=== PATIENT | male | born 1975 | race Caucasian/White ===

== ENCOUNTER 2018-03-27 22:46 | Inpatient (IN) | payer OTHER, SELFPAY ==
[2018-03-27] MEDS ORDERED: Lidocaine 1% PF 5 ML VIAL ONE (23:01)
[2018-03-28 02:47] LABS: #Basophils 0.1 thou/uL (0.0-0.2); #Eosinphils 0.3 thou/uL (0.0-0.7); #Lymphocytes 3.3 thou/uL (1.20-3.40); #Monocytes 1.6 thou/uL (0.11-0.59); #Neutrophils 13.5 thou/uL (1.40-6.50); %Basophils 0.5 % (0.0-1.0); %Eosinophils 1.7 % (0.0-10.0); %Lymphocytes 17.4 % (21.0-51.0); %Monocytes 8.4 % (0.0-10.0); Hemoglobin 13.5 g/dL (14.0-18.0); Mean Corpuscular HGB CONC 33.6 g/dL (32.0-36.0); Mean Corpuscular Hemoglobin 32.6 pg (27.0-31.0); Mean Corpuscular Volume 96.9 fL (78.0-98.0); Mean Platelet Volume 7.4 fL (7.4-10.4); Platelet Count 389 thou/uL (130-400); RBC Distribution Width 11.9 % (11.5-14.5); Red Blood Cell (RBC) Count 4.14 mill/uL (4.70-6.10); White Blood Cell (WBC) Count 18.7 thou/uL (4.8-10.8)
[2018-03-28 03:48] LABS: ALT (SGPT) 18 U/L (8-55); AST (SGOT) 14 U/L (5-34); Albumin 3.5 g/dL (3.5-5.0); Alkaline Phosphatase 90 U/L (40-150); Anion Gap 15 mmol/L (10-20); BUN (Urea Nitrogen) 8 mg/dL (8.9-20.6); Bilirubin, Total 0.7 mg/dL (0.2-1.2); Calc. Creatinine Clearance 0 mL/min (70-130); Calcium 8.9 mg/dL (7.8-10.44); Carbon Dioxide 18 mmol/L (22-29); Chloride 101 mmol/L (98-107); Estimated GFR-MDRD Greater than 90; Globulin 3.3 g/dL (2.4-3.5); Glucose 272 mg/dL (70-105); Potassium 3.8 mmol/L (3.5-5.1); Protein, Total 6.8 g/dL (6.0-8.3); Sodium 130 mmol/L (136-145)
--- NOTE | 2018-03-28 04:36 | PDOC.FPRHP ---
- History of Present Illness Chief Complaint: R groin infection/abscess History of Present Illness: 42 yo M with PMH DM2, HTN, HLD was transferred from [place] ED for R groin cellulitis. Patient reports 3 day history of worsening redness, swelling, pain. Has history of "cysts" in groin area where tight fitting clothes are. He typically pops these himself. He tried popping current lesion multiple times, but it continued to worsen. Reports subjective fever/chills. I&D of abscess performed in ED with reported 25cc pus expressed. PCP is in [place]. 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 ED Course: vanc, shyamn, 1L - Allergies/Adverse Reactions Allergies Allergy/AdvReac Type Severity Reaction Status Date / Time No Known Allergies Allergy Unverified 03/28/18 06:09 - Home Medications Medication Instructions Recorded Confirmed Type Fenofibrate Nanocrystallized 48 mg PO DAILY 03/28/18 03/28/18 History [Fenofibrate] Lisinopril [Zestril] 5 mg PO DAILY 03/28/18 03/28/18 History metFORMIN HCl [Metformin HCl] 1,000 mg PO BID 03/28/18 03/28/18 History - History PMHx: DM2, HTN, HLD PSHx: None FHx: grandmother-leukemia Social: Smokes 1PPD x23 years. Meth and marijuana abuse. No alcohol use. - Review of Systems General: reports: fever/chills ENT: denies: nasal congestion Respiratory: denies: cough, congestion, shortness of breath Cardiovascular: denies: chest pain, palpitation Gastrointestinal: denies: nausea, vomiting, diarrhea, abdominal pain Genitourinary: denies: dysuria Skin: reports: rashes, lesions (R groin) Musculoskeletal: reports: pain, swelling Neurological: denies: numbness, weakness - Vital signs BP: 140/75 HR: 100 RR: 19 Tmax: 98.4 Pox: 92% on RA Wt: 127 kg - Physical Exam Constitutional: awake, alert and oriented (obese, slightly agitated, fidgeting) HEENT: normocephalic and atraumatic, grossly normal vision, grossly normal hearing, MMM Heart: RRR, normal S1/S2, no murmurs/rubs/gallops, no edema Lungs: CTAB, no respiratory distress, no wheezing Abdomen: soft (obese), non-tender, bowel sounds present Musculoskeletal: normal structure, normal tone Neurological: no focal deficit Skin: good turgor, other (large erythematous area of R groin, areas of skin sloughing, tenderness limits exam. Does not extend into scrotum.) Psychiatric: intact recent and remote memory FMR H&P: Results - Labs Result Diagrams: 03/28/18 02:25 03/28/18 02:56 Lab results: WBC 18.7 thou/uL (4.8-10.8) H 03/28/18 02:25 Hgb 13.5 g/dL (14.0-18.0) L 03/28/18 02:25 Hct 40.1 % (42.0-52.0) L 03/28/18 02:25 MCV 96.9 fL (78.0-98.0) 03/28/18 02:25 Plt Count 389 thou/uL (130-400) 03/28/18 02:25 Neutrophils % 72.0 % (42.0-75.0) 03/28/18 02:25 Sodium 130 mmol/L (136-145) L 03/28/18 02:56 Potassium 3.8 mmol/L (3.5-5.1) 03/28/18 02:56 Chloride 101 mmol/L (98-107) 03/28/18 02:56 Carbon Dioxide 18 mmol/L (22-29) L 03/28/18 02:56 BUN 8 mg/dL (8.9-20.6) L 03/28/18 02:56 Creatinine 0.78 mg/dL (0.7-1.3) 03/28/18 02:56 Glucose 272 mg/dL (70-105) H 03/28/18 02:56 Lactic Acid 0.8 mmol/L (0.5-2.2) 03/28/18 00:41 Calcium 8.9 mg/dL (7.8-10.44) 03/28/18 02:56 Total Bilirubin 0.7 mg/dL (0.2-1.2) 03/28/18 02:56 AST 14 U/L (5-34) 03/28/18 02:56 ALT 18 U/L (8-55) 03/28/18 02:56 Alkaline Phosphatase 90 U/L (40-150) 03/28/18 02:56 Serum Total Protein 6.8 g/dL (6.0-8.3) 03/28/18 02:56 Albumin 3.5 g/dL (3.5-5.0) 03/28/18 02:56 FMR H&P: A/P - Problem List (1) Sepsis Current Visit: Yes Status: Acute Code(s): A41.9 - SEPSIS, UNSPECIFIED ORGANISM (2) Cellulitis Current Visit: Yes Status: Acute Code(s): L03.90 - CELLULITIS, UNSPECIFIED (3) HTN (hypertension) Current Visit: Yes Status: Acute Code(s): I10 - ESSENTIAL (PRIMARY) HYPERTENSION (4) HLD (hyperlipidemia) Current Visit: Yes Status: Acute Code(s): E78.5 - HYPERLIPIDEMIA, UNSPECIFIED (5) T2DM (type 2 diabetes mellitus) Current Visit: Yes Status: Acute - Plan Sepsis 2/2 R groin cellulitis - WBC 22 and tachycardia on initial presentation, afebrile. Now VSS. - s/p I&D in ED, reported 25cc pus removed. No packing in place - vanc, zosyn started in ED (03/28), continue - IVF LR @ 125 - CT did not show any air in tissue DM - A1c pending - continue home metformin - accuchecks and SSI for now HTN - hold home lisinopril for now HLD - continue home fenofibrate Diet: CC Ppx: Lovenox Dispo: admit to medical inpatient FMR H&P: Upper Level - Pertinent history 42 yr old male with PMH of Diabetes, HTN, and HLD who presents with 3 days of right groin abscess formation. He reports pain and tenderness and redness. States he gets these abscesses frequently along areas of tight fitting clothing but usually pops them and they improve. Never hospitalized for this. Reports sweating and chills, subjective fever. Denies any other symptoms- no CP, SOB, N/V/D, abdominal pain. - Pertinent findings Gne: No acute distress although patient seems a little anxious, irritated, and is sweating Heart: mild tachycardia and reg rhythm, no M/R/G Lungs: CTAB, no wheezes, rhales, rhonchi EXT: right groin with some ulcerated appearance and large area of erythema, tenderness, warmth, and s/p I&d with purulent drainage. - Plan Date/Time: 03/28/18 1581 I, [Rafaela Mirza], have evaluated this patient and agree with findings/plan as outlined by geotechnical intern resident. Pertinent changes/additions are listed here. 42 yr old male with hx of drug abuse who presents with right groin cellulitis sepsis 2/2 Right groin cellulitis -mild tachycardia, leukocytosis, no documented fever seen -started on vanc and zosyn in ER -LRINEC score low risk but is pending CRP result -preliminary CT report without evidence for gas within tissue or soft tissue emphysema DM type 2 -cont home metformin -SSI HTN -cont home meds HLD -cont home meds PCP: JEIMY MAXWELL Code status: full Diet: CC Dispo: likely 3-4 days of IV abx at minimum Addendum - Attending - Attending Attestation Date/Time: 03/28/18 [id number] I personally evaluated the patient and discussed the management with Dr. Bishop I agree with the History, Examination, Assessment and Plan documented above with any addition or exceptions noted below. 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 additional PMHX :Smoker,Hx polysubstance use ,DM2 ,Obesity, HTN,and Dyslipidemia .Chart review note that 25 ml purulent d/c aspirated from right groin by ER physician here at [facility] area erythematous brawny and indurated was initial concern concern for necrotizing fasciitis and CT was obtained. Cultures obtained empirical antibiotic started will consult with General surgery. 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
[2018-03-28] MEDS ORDERED: Dextrose 50% Abboject 50 ML SYRINGE SLOW IVP PRN (06:06)
[2018-03-28] MEDS ORDERED: Dextrose 5% in Water 1,000 ML IV PRN (06:06)
[2018-03-28] MEDS ORDERED: Ondansetron ODT 4 MG TAB PO PRN (06:06)
[2018-03-28 06:16] VITALS: BMI 46.5
[2018-03-28 06:27] LABS: Hemoglobin A1c 10.9 % (4.0-6.0)
[2018-03-28] MEDS ORDERED: ISOVUE-370 76%-LOCM 1 ML ONE (07:46)
[2018-03-28] MEDS ORDERED: metFORMIN 500 MG TAB PO SCH (08:00)
[2018-03-28] MEDS: Piperacillin/Tazobactam 3.375 GM in Sodium Chloride 0.9% 100 ML IVPB SCH ×3 (08:11→18:36)
[2018-03-28] MEDS: Lactated Ringer's 1,000 ML IV SCH ×3 (08:13→22:21)
[2018-03-28] MEDS: Nicotine 21 MG PATCH TD SCH (08:15)
--- NOTE | 2018-03-28 08:32 | CT ---
PRELIMINARY REPORT/[facility]/EMERGENTY AFTER-HOURS PROCEDURE CT Right Lower Extremity With IV Contrast, Femur EXAM DATE/TIME: 03/28/2018 12:16 AM CLINICAL HISTORY: 42 years old, male; Pain and signs and symptoms; Cellulitis; Thigh; Right; Patient HX: M42 presents t o the ed via ems as a txfr from another hospital for r leg cellulitis onset x3 days travel pta. PT. Reports tactile fever TECHNIQUE: CT of the Right lower extremity with intravenous contrast was performed. Exam focused on the femur. Coronal and sagittal reformatted images were created and reviewed. COMPARISON: No relevant prior studies available. FINDINGS: Bones/joints: Normal. No acute fracture or dislocation. Soft tissues: There is subcutaneous fat stranding consistent with cellulitis involving the medial rig ht thigh and extending to the anterior right hip region. There is a focal loculated fluid collection in the subcutaneous fat layer of the anteromedial aspect of the upper right thigh which measures 5.4 x 3.4 x 4.3 cm. This collection contains no air but developing subcutaneous abscess cannot be excluded. No o bvious inflammation extending into the underlying muscles of the right thigh and no soft tissue emphysema to suggest necrotizing fasciitis. Lymph nodes: There are mildly prominent right inguinal and anterior upper right thigh lymph nodes. IMPRESSION: 1. There is subcutaneous fat stranding consistent with cellulitis involving the medial right thigh an d extending to the anterior right hip region. There is a focal loculated fluid collection in the subc utaneous fat layer of the anteromedial aspect of the upper right thigh which measures 5.4 x 3.4 x 4.3 cm. This collection contains no air but developing subcutaneous abscess cannot be excluded. No ob vious inflammation extending into the underlying muscles of the right thigh and no soft tissue emphys marisa to suggest necrotizing fasciitis. 2. There are mildly prominent right inguinal and anterior upper right thigh lymph nodes. 3. No erosive/destructive changes of the bones to suggest advanced osteomyelitis. Thank you for allowing us to participate in the care of your patient. Dictated and Authenticated by: Adarsh Sepulveda MD 03/28/2018 1:24 AM Central Time ([place] & [place]) FINAL REPORT CT RIGHT LOWER EXTREMITY WITH IV CONTRAST: Date: 03/28/18 IMPRESSION: I agree with the preliminary report given by Namita. POS: [facility]
[2018-03-28] MEDS: Enoxaparin Sodium 40 MG/0.4 ML SYRINGE SC SCH (08:37)
[2018-03-28] MEDS ORDERED: Non-Formulary Item 1 EACH (Metformin Hcl [Metformin Hcl] 1,000 MG) PO SCH (09:00)
[2018-03-28] MEDS ORDERED: Insulin Glargine 5 UNITS in Pre-Filled Syringe 1 EACH SC SCH (10:00)
[2018-03-28] MEDS: Fenofibrate 48 MG TAB PO SCH (10:57)
[2018-03-28] MEDS: Insulin Regular 300 UNITS/3 ML VIAL SC PRN (11:01)
[2018-03-28] MEDS ORDERED: Ondansetron PF 4 MG/2 ML Vial ONE (13:25)
[2018-03-28] MEDS ORDERED: Lidocaine 1% PF 5 ML VIAL ONE (13:25)
[2018-03-28] MEDS ORDERED: PROPOFOL 200 MG/20 ML VIAL ONE (13:25)
[2018-03-28 15:36] LABS: Amphetamine Detected (NotDetected); Barbiturates Screen Not Detected (NotDetected); Benzodiazepine Screen Not Detected (NotDetected); Cocaine Metabolite Screen Not Detected (NotDetected); Medtox Control Line Valid? VALID (VALID); Medtox Reader # READER 1; Methadone Not Detected (NotDetected); Methamphetamine Detected (NotDetected); Opiate Screen Not Detected (NotDetected); Oxycodone Screen Not Detected (NotDetected); Phencyclidine (PCP) Not Detected (NotDetected); THC/Cannabinoid Screen Detected (NotDetected); Tricyclic Screen Not Detected (NotDetected)
[2018-03-28] MEDS ORDERED: Bupivacaine HCl 0.5%/Epinephrine 1:200,000/PF 30 ml Vial ONE (19:28)
[2018-03-28] MEDS ORDERED: Ondansetron HCl/PF 4 MG/2 ML Vial IVP PRN (21:07)
[2018-03-28] MEDS ORDERED: Promethazine HCl 25 MG/ML VIAL SLOW IVP PRN (21:07)
[2018-03-28] MEDS ORDERED: Promethazine HCl 25 MG/ML VIAL IM PRN (21:07)
--- NOTE | 2018-03-28 23:09 | PDOC.OP ---
Operative Note - Operative Note Operative Note: PROCEDURE: Incision and drainage of right groin abscess DATE OF PROCEDURE: 03/28/2018 SURGEON: Melyssa Jarrell M.D. PREOPERATIVE DIAGNOSES: Right groin abscess POSTOPERATIVE DIAGNOSIS: Right groin abscess HISTORY: Patient with right groin abscess which is partially draining through an attempted aspiration site. He has significant erythema and induration and the recommendation was made to drain the abscess in the operating room due to the large size of involved tissue. PROCEDURE IN DETAIL: After informed consent was obtained and appropriate antibiotics continued the patient was taken to the operating room where he was placed in supine position and general anesthesia was administered. He was placed in frog-leg position and prepped and draped in standard sterile fashion. Local anesthesia was infused to the skin and subcutaneous tissues over the most fluctuant area of the abscess. This was incised and a large amount of pus encountered. Pus was sent for Gram stain and culture. The abscess cavity was palpated and extended quite high along the groin crease area. The incision was extended and additional necrotic fat debrided and pus drained. The abscess cavity measured 14 cm in length and was about 4-1/2 cm deep. There was no evidence of a necrotizing soft tissue infection; although some nonadherent globules of fat were debrided from the wound the underlying tissue appeared inflamed but viable and had excellent blood flow. The abscess cavity was copiously irrigated and hemostasis from inflamed bleeding tissues was obtained using Bovie electrocautery. There was no expressible pus from the surrounding indurated tissue and no evidence of involvement of the deep tissues. The wound was packed with Betadine soaked Kerlix and dressed with an APD pad. Additional local anesthesia was infused for postoperative pain management and the patient was extubated and taken to recovery in good condition. Estimated blood loss is minimal. There were no complications. Specimen is pus for Gram stain and culture.
[2018-03-28 23:53] LABS: Vancomycin, Trough 15.3 ug/mL
[2018-03-29] MEDS: Piperacillin/Tazobactam 3.375 GM in Sodium Chloride 0.9% 100 ML IVPB SCH ×4 (01:03→18:35)
--- NOTE | 2018-03-29 06:22 | PDOC.FM ---
- Subjective Subjective: Tolerated surgery well yesterday, denies pain. Pt frustrated with missing days of work and fear of hospital bill. Refused labs this AM. Up walking to the bathroom this morning. - Objective MAR Reviewed: Yes Vital Signs & Weight: Vital Signs (12 hours) Temp Pulse Resp BP Pulse Ox 03/29/18 02:00 97 148/82 H 97 03/29/18 01:00 100 20 142/88 H 95 03/29/18 00:00 97.9 F 102 H 18 129/79 99 03/28/18 23:00 93 20 152/83 H 95 03/28/18 22:00 98.2 F 88 20 138/89 93 L Weight Admit Weight 130.635 kg Weight 130.635 kg I&O: 03/27/18 03/28/18 03/29/18 06:59 06:59 06:59 Intake Total 400 Balance 400 Result Diagrams: 03/28/18 02:25 03/28/18 02:56 Phys Exam - Physical Examination Constitutional: NAD HEENT: moist MMs Neck: supple Respiratory: no wheezing, clear to auscultation bilateral Cardiovascular: RRR, no significant murmur Gastrointestinal: soft, non-tender, positive bowel sounds Musculoskeletal: no edema Neurological: non-focal Psychiatric: normal affect, A&O x 3 Deviation from normal: Right groin abscess/cellulitis, wound packed Dx/Plan (1) Sepsis Code(s): A41.9 - SEPSIS, UNSPECIFIED ORGANISM Status: Acute (2) Abscess Code(s): L02.91 - CUTANEOUS ABSCESS, UNSPECIFIED Status: Acute (3) Cellulitis Code(s): L03.90 - CELLULITIS, UNSPECIFIED Status: Acute (4) HLD (hyperlipidemia) Code(s): E78.5 - HYPERLIPIDEMIA, UNSPECIFIED Status: Chronic (5) HTN (hypertension) Code(s): I10 - ESSENTIAL (PRIMARY) HYPERTENSION Status: Chronic (6) T2DM (type 2 diabetes mellitus) Status: Chronic - Plan Plan: 42yo male with pmh of uncontrolled DMII presenting with sepsis 2/2 groin abscess Sepsis 2/2 right groin abscess - Initial leukocytosis 22.1, tachycardia, afebrile - CT with no evidence of nec fas or osteomyelitis. Abscess present - s/p needle aspiration in ED, removed 25cc - Continue Vanc/Zosyn - Surgery consulted, OR for I&D 03/28, 14cm in length, 4.5cm depth. Packed with bentadine soaked kerlix. Cultures obtained - Initial cultures showing gram + cocci in clusters and chains. - Blood cultures pending - LR @125 DM - A1c 10.9% - Holding home Metformin. 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 - CM consulted due to financial concerns Multisubstance Abuse - UDS positive for meth and cannabis HTN - Continue home lisinopril HLD - Continue home fenofibrate Code Status: FULL DVT ppx: Lovenox PCP: Dr. Renetta Robles in [place] Addendum - Attending - Attending Attestation Date/Time: 03/29/18 [id number] I personally evaluated the patient and discussed the management with Dr. Ryan I agree with the History, Examination, Assessment and Plan documented above with any addition or exceptions noted below. Patient argumentative upset with rec for continued stay note positive UDS, Concerns with financial cost associated with hospitalization. Advised patient of severity of condition and need for continued stay.
[2018-03-29] MEDS: Lactated Ringer's 1,000 ML IV SCH ×3 (06:25→22:11)
[2018-03-29] MEDS: Insulin Regular 300 UNITS/3 ML VIAL SC PRN (06:26)
--- NOTE | 2018-03-29 08:08 | CON ---
DATE OF CONSULTATION: 03/28/2018 HISTORY OF PRESENT ILLNESS: This is a 42-year-old male with history of uncontrolled diabetes, who presents to the ED after rash and blistering in his right groin and right upper thigh. 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 Typically , he pops these himself and he believes he did with this as well. The past few days, he noticed that it was difficult to pop them and drain and they started spreading. He denies any home fevers, chills, nausea, vomiting, changes in p.o., changes in appetite. In the ED, imaging was performed and showed a 5.4 x 3.4 x 4.3 cm abscess in the anterior medial aspect of the right upper thigh. The ED physician performed an aspiration with removal of about 25 mL and he was started on vanc and Zosyn. This morning in talking with the patient, he still denies any systemic symptoms, but does report pain in the area. PAST MEDICAL HISTORY: Diabetes type 2, hypertension, hyperlipidemia. PAST SURGICAL HISTORY: None. FAMILY HISTORY: Grandmother with leukemia. SOCIAL HISTORY: Smokes, 23 pack year history, one pack per day. Meth and marijuana abuse. No alcohol use. ALLERGIES: NKDA. CURRENT MEDICATIONS: 1. Fenofibrate 40 mg p.o. daily. 2. Lisinopril 5 mg p.o. daily. 3. Metformin 1000 mg p.o. b.i.d. REVIEW OF SYSTEMS: MUSCULOSKELETAL: The patient reports right groin and medial thigh pain, swelling, redness. Ten-point review of systems performed and aside from what is stated above, everything else is negative. PHYSICAL EXAMINATION: VITAL SIGNS: Temperature 97.7, pulse 99, respirations 20, O2 saturation 99% on room air, blood pressure 121/65. GENERAL: Reveals a 42-year-old man who is resting comfortably, sitting up in bed. He was just finishing eating breakfast. He is A and O x3. GCS 15. HEENT: Head is normocephalic and atraumatic. Pupils are equal, round, and reactive to light. HEART: Reveals regular rate and rhythm. No murmurs, rubs, or gallops. LUNGS: Clear to auscultation in breathing. No acute respiratory distress with equal rise and fall of chest. ABDOMEN: Soft, nontender, nondistended. Normoactive bowel sounds. SKIN: Extensive erythema in the right inguinal fold extending from the ascending to the lateral thigh and into the groin, edges have been clearly demarcated with a marker. No obvious blisters or overt drainage. Tender to palpation. Warm to touch. EXTREMITIES: Pulses equal and full in all extremities. NEUROLOGIC: Neurovascularly in contact with movement of all 4 extremities. LABORATORY DATA: White count 18.7, hemoglobin 13.5, hematocrit 40.1, neutrophils 72% with no bandemia, lymphocytes 17.4%. Sodium 130, potassium 3.8, chloride 101 , carbon dioxide 18, anion gap is 4, BUN 8, creatinine 0.78, GFR greater than 90, glucose 272, A1c 10.9, CRP 20.36. IMAGING: Lower extremity CT (03/28/2018): Subcutaneous fat stranding consistent with cellulitis involving the medial right thigh and extending to the anterior right hip region. Focal loculated fluid collection in the subcutaneous fat layer that measures 5.4 x 3.4 x 4.3 cm. No presence of air in the subcutaneous tissue. No obvious inflammation extending into the underlying muscles of the right thigh and no soft tissue emphysema suggesting necrotizing fasciitis.In addition, no erosive or destructive changes in the bone to suggest osteomyelitis. ASSESSMENT: 1. Cellulitis with abscess of the right inguinal groin and right anteromedial thigh with no evidence of osteomyelitis or necrotizing fasciitis. 2. Sepsis secondary to above, resolved. 3. Hypertension. 4. Hyperlipidemia. 5. DM 2. PLAN: 1. Imaging confirming presence of abscess in right groin and right upper medial thigh s/p FNA in the ED. Continue vanc and Zosyn. Plan for I and D in the OR this evening. In the meantime, keep the patient n.p.o. and continue vanc and Zosyn. Continue with IV fluids at current rate. 2. Continue medical management as per primary team. Continue DVT prophylaxis including subcutaneous Lovenox. This patient was seen and examined by Dr. Andrea Aguilar, who agrees with the above plan. Thank you for allowing us to aid in the care of your patient. Job ID: [id number] [facility]
[2018-03-29] MEDS: Nicotine 21 MG PATCH TD SCH (08:14)
[2018-03-29] MEDS: Lisinopril 5 MG TAB PO SCH (08:39)
[2018-03-29] MEDS: Enoxaparin Sodium 40 MG/0.4 ML SYRINGE SC SCH (08:39)
[2018-03-29] MEDS: Fenofibrate 48 MG TAB PO SCH (08:40)
[2018-03-29] MEDS ORDERED: Insulin Glargine 10 UNITS in Pre-Filled Syringe 1 EACH SC SCH (09:00)
[2018-03-29] MEDS ORDERED: Insulin Glargine 5 UNITS in Pre-Filled Syringe 1 EACH SC SCH (09:00)
[2018-03-29] MEDS: Acetaminophen 325 MG TAB PO PRN (10:41)
[2018-03-29 12:48] LABS: #Basophils 0.1 thou/uL (0.0-0.2); #Eosinphils 0.4 thou/uL (0.0-0.7); #Lymphocytes 2.6 thou/uL (1.20-3.40); #Monocytes 0.8 thou/uL (0.11-0.59); #Neutrophils 7.1 thou/uL (1.40-6.50); %Basophils 0.6 % (0.0-1.0); %Lymphocytes 23.8 % (21.0-51.0); %Monocytes 7.6 % (0.0-10.0); Hemoglobin 12.5 g/dL (14.0-18.0); Mean Corpuscular HGB CONC 33.1 g/dL (32.0-36.0); Mean Corpuscular Hemoglobin 32.8 pg (27.0-31.0); Mean Corpuscular Volume 99.3 fL (78.0-98.0); Platelet Count 398 thou/uL (130-400); RBC Distribution Width 11.8 % (11.5-14.5); Red Blood Cell (RBC) Count 3.81 mill/uL (4.70-6.10); White Blood Cell (WBC) Count 11.1 thou/uL (4.8-10.8)
[2018-03-29 13:05] LABS: Anion Gap 11 mmol/L (10-20); BUN (Urea Nitrogen) 7 mg/dL (8.9-20.6); Calc. Creatinine Clearance 245 mL/min (70-130); Calcium 8.9 mg/dL (7.8-10.44); Carbon Dioxide 27 mmol/L (22-29); Chloride 104 mmol/L (98-107); Estimated GFR-MDRD Greater than 90; Glucose 351 mg/dL (70-105); Potassium 4.1 mmol/L (3.5-5.1); Sodium 138 mmol/L (136-145)
[2018-03-29] MEDS: HumaLOG 300 UNITS/3 ML VIAL SC PRN ×3 (13:12→22:13)
--- NOTE | 2018-03-29 15:08 | PDOC.GSPN ---
Surgery Progress Note: Subj - Subjective Narrative: Patient is feeling okay today. Swelling and redness in his thigh have diminished somewhat. He has an irrigating VAC in place. If his cellulitis resolves and the wound looks good on Sunday he can be transitioned to wet-to- dry dressings and sent home on oral antibiotics. Surgery Progress Note: Obj - Vital signs Vital signs: Vital Signs - Most Recent Temp Pulse Resp BP Pulse Ox 97.8 F 90 18 160/84 H 96 03/29/18 11:20 03/29/18 11:20 03/29/18 11:20 03/29/18 11:20 03/29/18 12:00 Surgery Progress Note: Results - Labs Result Diagrams: 03/29/18 12:38 03/29/18 12:38 Lab results: Laboratory Results - last 24 hr 03/29/18 03/29/18 03/29/18 04:15 11:24 12:38 WBC RBC Hgb Hct MCV MCH MCHC RDW Plt Count MPV Neutrophils % Lymphocytes % Monocytes % Eosinophils % Basophils % Neutrophils # Lymphocytes # Monocytes # Eosinophils # Basophils # Sodium 138 Potassium 4.1 Chloride 104 Carbon Dioxide 27 Anion Gap 11 BUN 7 L Creatinine 0.74 Estimated GFR (MDRD) Greater than 90 Glucose 351 H POC Glucose 298 H 361 H Calcium 8.9 03/29/18 12:38 WBC 11.1 H RBC 3.81 L Hgb 12.5 L Hct 37.8 L MCV 99.3 H MCH 32.8 H MCHC 33.1 RDW 11.8 Plt Count 398 MPV 7.0 L Neutrophils % 64.0 Lymphocytes % 23.8 Monocytes % 7.6 Eosinophils % 4.0 Basophils % 0.6 Neutrophils # 7.1 H Lymphocytes # 2.6 Monocytes # 0.8 H Eosinophils # 0.4 Basophils # 0.1 Sodium Potassium Chloride Carbon Dioxide Anion Gap BUN Creatinine Estimated GFR (MDRD) Glucose POC Glucose Calcium
[2018-03-29 23:16] LABS: Vancomycin, Trough 12.5 ug/mL
[2018-03-30] MEDS: Piperacillin/Tazobactam 3.375 GM in Sodium Chloride 0.9% 100 ML IVPB SCH ×5 (00:30→23:35)
[2018-03-30] MEDS: HumaLOG 300 UNITS/3 ML VIAL SC PRN ×4 (05:17→20:19)
--- NOTE | 2018-03-30 06:00 | PDOC.FM ---
- Subjective Subjective: No overnight events. Denies pain. Eating and drinking well. Denies nausea. Understands plan that if things improve Sunday he may be able to go home with PO antibiotics. - Objective MAR Reviewed: Yes Vital Signs & Weight: Vital Signs (12 hours) Temp Pulse Resp BP BP Pulse Ox 03/30/18 03:44 98.2 F 74 20 163/80 H 93 L 03/30/18 00:47 98.3 F 89 20 165/99 H 92 L 03/29/18 19:55 98.6 F 87 20 148/86 H 94 L Weight Admit Weight 130.635 kg Weight 130.635 kg I&O: 03/28/18 03/29/18 03/30/18 06:59 06:59 06:59 Intake Total 2050 480 Output Total 600 1000 Balance 1450 -520 Result Diagrams: 03/30/18 06:45 03/30/18 06:45 Phys Exam - Physical Examination Constitutional: NAD HEENT: moist MMs Neck: supple Respiratory: no wheezing, clear to auscultation bilateral Cardiovascular: RRR, no significant murmur Gastrointestinal: soft, non-tender, positive bowel sounds Musculoskeletal: no edema Neurological: non-focal, moves all 4 limbs Psychiatric: normal affect, A&O x 3 Skin: cap refill <2 seconds Deviation from normal: Wound right groin Dx/Plan (1) Sepsis Code(s): A41.9 - SEPSIS, UNSPECIFIED ORGANISM Status: Acute (2) Abscess Code(s): L02.91 - CUTANEOUS ABSCESS, UNSPECIFIED Status: Acute (3) Cellulitis Code(s): L03.90 - CELLULITIS, UNSPECIFIED Status: Acute (4) HLD (hyperlipidemia) Code(s): E78.5 - HYPERLIPIDEMIA, UNSPECIFIED Status: Chronic (5) HTN (hypertension) Code(s): I10 - ESSENTIAL (PRIMARY) HYPERTENSION Status: Chronic (6) T2DM (type 2 diabetes mellitus) Status: Chronic - Plan Plan: 42yo male with pmh of uncontrolled DMII presenting with sepsis 2/2 groin abscess Sepsis 2/2 right groin abscess - Initial leukocytosis 22.1, tachycardia, afebrile - CT with no evidence of nec fas or osteomyelitis. Abscess present - s/p needle aspiration in ED, removed 25cc - Continue Vanc/Zosyn - Surgery consulted, OR for I&D 2/14, 14cm in length, 4.5cm depth. Packed with bentadine soaked kerlix. Cultures obtained - Wound cultures group B strep - Blood cultures NGTD - Per damaso if cellulitis resolves wound improves by Sunday he can be transitioned to wet-to-dry dressings and d/c'ed on PO antibiotics. DM - A1c 10.9% - Holding home Metformin. 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 Will adjust Lantus insulin to 30U - accuchecks ACHS - SSI and hypoglycemic protocol - Will need better control of blood glucose at d/c for wound healing. - CM consulted due to financial concerns Hypoxia overnight - likely CHERYL - Recommend outpt testing Multisubstance Abuse - UDS positive for meth and cannabis HTN - Continue home lisinopril HLD - Continue home fenofibrate Code Status: FULL DVT ppx: Lovenox PCP: Dr. Renetta Robles in [place] Addendum - Attending - Attending Attestation Date/Time: 03/30/18 8635 I personally evaluated the patient and discussed the management with Dr. Cardoso I agree with the History, Examination, Assessment and Plan documented above with any addition or exceptions noted below.
[2018-03-30 07:25] LABS: #Basophils 0.1 thou/uL (0.0-0.2); #Eosinphils 0.7 thou/uL (0.0-0.7); #Lymphocytes 3.2 thou/uL (1.20-3.40); #Monocytes 0.8 thou/uL (0.11-0.59); #Neutrophils 5.5 thou/uL (1.40-6.50); %Basophils 0.7 % (0.0-1.0); %Monocytes 7.9 % (0.0-10.0); %Neutrophils 53.5 % (42.0-75.0); Mean Corpuscular HGB CONC 32.7 g/dL (32.0-36.0); Mean Corpuscular Hemoglobin 32.8 pg (27.0-31.0); Platelet Count 454 thou/uL (130-400); RBC Distribution Width 11.8 % (11.5-14.5); Red Blood Cell (RBC) Count 3.96 mill/uL (4.70-6.10); White Blood Cell (WBC) Count 10.3 thou/uL (4.8-10.8)
[2018-03-30 07:48] LABS: Anion Gap 13 mmol/L (10-20); BUN (Urea Nitrogen) 6 mg/dL (8.9-20.6); Calc. Creatinine Clearance 239 mL/min (70-130); Carbon Dioxide 24 mmol/L (22-29); Chloride 106 mmol/L (98-107); Estimated GFR-MDRD Greater than 90; Glucose 261 mg/dL (70-105); Potassium 4.1 mmol/L (3.5-5.1); Sodium 139 mmol/L (136-145)
[2018-03-30] MEDS: Nicotine 21 MG PATCH TD SCH (07:51)
[2018-03-30] MEDS: Enoxaparin Sodium 40 MG/0.4 ML SYRINGE SC SCH (07:51)
[2018-03-30] MEDS: Lisinopril 5 MG TAB PO SCH (07:52)
[2018-03-30] MEDS: Fenofibrate 48 MG TAB PO SCH (07:53)
[2018-03-30] MEDS ORDERED: Insulin Glargine 10 UNITS in Pre-Filled Syringe 1 EACH SC SCH (09:00)
[2018-03-30] MEDS ORDERED: Insulin Glargine 18 UNITS in Pre-Filled Syringe 1 EACH SC SCH (09:00)
[2018-03-30] MEDS ORDERED: Insulin Glargine 30 UNITS in Pre-Filled Syringe 1 EACH SC SCH (09:00)
[2018-03-30] MEDS ORDERED: Insulin Glargine 15 UNITS in Pre-Filled Syringe 1 EACH SC SCH (21:00)
[2018-03-31] MEDS: Nicotine 21 MG PATCH TD SCH (05:00)
[2018-03-31] MEDS: Piperacillin/Tazobactam 3.375 GM in Sodium Chloride 0.9% 100 ML IVPB SCH ×4 (05:53→23:28)
[2018-03-31] MEDS: HumaLOG 300 UNITS/3 ML VIAL SC PRN ×3 (05:54→20:14)
--- NOTE | 2018-03-31 06:39 | PDOC.FM ---
- Subjective Subjective: Feeling well. No overnight events. Denies fever, chills, pain. Voiding and stooling. No questions or concerns. - Objective MAR Reviewed: Yes Vital Signs & Weight: Vital Signs (12 hours) Temp Pulse Resp BP Pulse Ox 03/30/18 20:00 98.0 F 70 18 138/78 95 Weight Admit Weight 130.635 kg Weight 130.635 kg I&O: 03/29/18 03/30/18 03/31/18 06:59 06:59 06:59 Intake Total 2050 2430 3329 Output Total 600 2900 2780 Balance 1450 -470 549 Result Diagrams: 03/31/18 07:54 03/31/18 07:54 Phys Exam - Physical Examination Constitutional: NAD HEENT: moist MMs Neck: supple Respiratory: no wheezing, clear to auscultation bilateral Cardiovascular: RRR, no significant murmur Gastrointestinal: soft, non-tender Musculoskeletal: no edema Neurological: moves all 4 limbs Psychiatric: normal affect, A&O x 3 Deviation from normal: Wound vac over right groin wound Dx/Plan (1) Sepsis Code(s): A41.9 - SEPSIS, UNSPECIFIED ORGANISM Status: Acute (2) Abscess Code(s): L02.91 - CUTANEOUS ABSCESS, UNSPECIFIED Status: Acute (3) Cellulitis Code(s): L03.90 - CELLULITIS, UNSPECIFIED Status: Acute (4) HLD (hyperlipidemia) Code(s): E78.5 - HYPERLIPIDEMIA, UNSPECIFIED Status: Chronic (5) HTN (hypertension) Code(s): I10 - ESSENTIAL (PRIMARY) HYPERTENSION Status: Chronic (6) T2DM (type 2 diabetes mellitus) Status: Chronic - Plan Plan: 42yo male with pmh of uncontrolled DMII presenting with sepsis 2/2 groin abscess Right Groin wound - CT with no evidence of nec fas or osteomyelitis - Surgery consulted, OR for I&D 03/28, 14cm in length, 4.5cm depth. Packed with bentadine soaked kerlix - Wound cultures group B strep - Blood cultures NGTD - Continue Vanc/Zosyn - Per damaso if cellulitis resolves wound improves by Sunday he can be transitioned to wet-to-dry dressings and d/c'ed on PO antibiotics. DM - A1c 10.9% - Restarting home Metformin. 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 Pt will likely have to discharge on Metformin and glipizide. Will need close follow with PCP. Spoke with him about the importance of diet and possibility of adding an injectable agent to avoid Insulin. - accuchecks ACHS - SSI and hypoglycemic protocol - Will need better control of blood glucose at d/c for wound healing. - CM consulted due to financial concerns Hypoxia overnight - likely CHERYL - Recommend outpt testing Multisubstance Abuse - UDS positive for meth and cannabis HTN - Continue home lisinopril HLD - Continue home fenofibrate Sepsis, resolved - 2/2 right groin abscess Code Status: FULL DVT ppx: Lovenox PCP: Dr. Renetta Robles in [place] Addendum - Attending - Attending Attestation Date/Time: 03/31/18 [id number] I personally evaluated the patient and discussed the management with Dr. Cardoso I agree with the History, Examination, Assessment and Plan documented above with any addition or exceptions noted below. 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 Adjusted short acting and basal insulin. should be able to transition po antibiotic soon if oked with General Surgery. Patient with wound vac at present.
[2018-03-31 08:28] LABS: #Basophils 0.1 thou/uL (0.0-0.2); #Eosinphils 0.7 thou/uL (0.0-0.7); #Lymphocytes 3.5 thou/uL (1.20-3.40); #Monocytes 0.6 thou/uL (0.11-0.59); #Neutrophils 5.6 thou/uL (1.40-6.50); %Basophils 0.6 % (0.0-1.0); %Eosinophils 6.7 % (0.0-10.0); %Lymphocytes 33.3 % (21.0-51.0); %Monocytes 5.9 % (0.0-10.0); %Neutrophils 53.6 % (42.0-75.0); Mean Corpuscular HGB CONC 32.2 g/dL (32.0-36.0); Mean Corpuscular Volume 99.3 fL (78.0-98.0); Mean Platelet Volume 6.7 fL (7.4-10.4); Platelet Count 470 thou/uL (130-400); RBC Distribution Width 11.8 % (11.5-14.5); Red Blood Cell (RBC) Count 4.08 mill/uL (4.70-6.10); White Blood Cell (WBC) Count 10.4 thou/uL (4.8-10.8)
[2018-03-31 08:48] LABS: Anion Gap 11 mmol/L (10-20); BUN (Urea Nitrogen) 9 mg/dL (8.9-20.6); Calc. Creatinine Clearance 252 mL/min (70-130); Calcium 9.1 mg/dL (7.8-10.44); Carbon Dioxide 26 mmol/L (22-29); Chloride 107 mmol/L (98-107); Estimated GFR-MDRD Greater than 90; Glucose 186 mg/dL (70-105); Potassium 3.9 mmol/L (3.5-5.1); Sodium 140 mmol/L (136-145)
[2018-03-31] MEDS ORDERED: Insulin Glargine 45 UNITS in Pre-Filled Syringe 1 EACH SC SCH (09:00)
[2018-03-31] MEDS: Lisinopril 5 MG TAB PO SCH (10:13)
[2018-03-31] MEDS: metFORMIN 500 MG TAB PO SCH ×2 (10:13→18:31)
[2018-03-31] MEDS: Enoxaparin Sodium 40 MG/0.4 ML SYRINGE SC SCH (10:14)
[2018-03-31] MEDS: Fenofibrate 48 MG TAB PO SCH (10:14)
[2018-03-31] MEDS: HumaLOG 300 UNITS/3 ML VIAL SC SCH ×2 (13:34→18:29)
[2018-03-31 23:24] LABS: Vancomycin, Trough 20.2 ug/mL
[2018-04-01] MEDS: Piperacillin/Tazobactam 3.375 GM in Sodium Chloride 0.9% 100 ML IVPB SCH ×4 (05:09→23:24)
[2018-04-01] MEDS: HumaLOG 300 UNITS/3 ML VIAL SC PRN ×2 (05:10→12:56)
--- NOTE | 2018-04-01 06:46 | PDOC.FM ---
- Subjective Subjective: Feeling well this morning. Denies pain, fever, chills. Would like to go home as soon as possible. No questions or concerns. - Objective MAR Reviewed: Yes Vital Signs & Weight: Vital Signs (12 hours) Temp Pulse Resp BP Pulse Ox 04/01/18 04:00 97.9 F 55 L 18 138/77 94 L 03/31/18 20:00 97.9 F 71 18 145/75 H 97 Weight Admit Weight 130.635 kg Weight 130.635 kg I&O: 03/30/18 03/31/18 04/01/18 06:59 06:59 06:59 Intake Total 2430 3329 3540 Output Total 2900 2780 Balance -335 219 3291 Result Diagrams: 04/01/18 07:21 04/01/18 07:21 Phys Exam - Physical Examination Constitutional: NAD HEENT: moist MMs Neck: supple Respiratory: no wheezing, clear to auscultation bilateral Cardiovascular: RRR, no significant murmur Gastrointestinal: soft, non-tender, positive bowel sounds Musculoskeletal: no edema Neurological: moves all 4 limbs Psychiatric: normal affect, A&O x 3 Skin: cap refill <2 seconds Dx/Plan (1) Sepsis Code(s): A41.9 - SEPSIS, UNSPECIFIED ORGANISM Status: Acute (2) Abscess Code(s): L02.91 - CUTANEOUS ABSCESS, UNSPECIFIED Status: Acute (3) Cellulitis Code(s): L03.90 - CELLULITIS, UNSPECIFIED Status: Acute (4) HLD (hyperlipidemia) Code(s): E78.5 - HYPERLIPIDEMIA, UNSPECIFIED Status: Chronic (5) HTN (hypertension) Code(s): I10 - ESSENTIAL (PRIMARY) HYPERTENSION Status: Chronic (6) T2DM (type 2 diabetes mellitus) Status: Chronic - Plan Plan: 42yo male with pmh of uncontrolled DMII presenting with sepsis 2/2 groin abscess Right Groin wound - CT with no evidence of nec fas or osteomyelitis - Surgery consulted, OR for I&D 03/28, 14cm in length, 4.5cm depth. Wound Vac in place - Wound cultures group B strep - Blood cultures NGTD - Continue Zosyn - Possibly d/c today on PO antibiotics if wound improved DM - A1c 10.9% - Continue home Metformin. 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 Pt will likely have to discharge on Metformin and glipizide. Will need close follow with PCP. Spoke with him about the importance of diet and possibility of adding an injectable agent to avoid Insulin. - accuchecks ACHS - SSI and hypoglycemic protocol - Will need better control of blood glucose at d/c for wound healing. - CM consulted due to financial concerns Hypoxia overnight - likely CHERYL - Recommend outpt testing Multisubstance Abuse - UDS positive for meth and cannabis HTN - Continue home lisinopril HLD - Continue home fenofibrate Sepsis, resolved - 2/2 right groin abscess Code Status: FULL DVT ppx: Lovenox PCP: Dr. Renetta Robles in [place] Addendum - Attending - Attending Attestation Date/Time: 04/01/18 6956 I personally evaluated the patient and discussed the management with Dr. Cardoso. I agree with the History, Examination, Assessment and Plan documented above with any addition or exceptions noted below. Patient doing well. Having some pain as woundvac was just exchanged. Continue IV abx and likely transition to PO today if cleared by surgery. Will need to clarify with them the plan for his wound care. If needing woundvac, will have to get CM involved. Otherwise, may be stable for discharge today. DM control somewhat improved with insulin regimen but patient is resistant to go on Insulin on discharge due the restrictions that places on his occupation.
[2018-04-01 07:38] LABS: #Basophils 0.1 thou/uL (0.0-0.2); #Eosinphils 0.8 thou/uL (0.0-0.7); #Lymphocytes 3.2 thou/uL (1.20-3.40); #Monocytes 0.6 thou/uL (0.11-0.59); #Neutrophils 5.8 thou/uL (1.40-6.50); %Basophils 0.6 % (0.0-1.0); %Eosinophils 7.4 % (0.0-10.0); %Monocytes 5.8 % (0.0-10.0); %Neutrophils 55.3 % (42.0-75.0); Hemoglobin 12.7 g/dL (14.0-18.0); Mean Corpuscular HGB CONC 33.5 g/dL (32.0-36.0); Mean Corpuscular Volume 98.4 fL (78.0-98.0); Mean Platelet Volume 6.7 fL (7.4-10.4); Platelet Count 490 thou/uL (130-400); RBC Distribution Width 11.7 % (11.5-14.5); Red Blood Cell (RBC) Count 3.86 mill/uL (4.70-6.10); White Blood Cell (WBC) Count 10.4 thou/uL (4.8-10.8)
[2018-04-01 07:58] LABS: Anion Gap 8 mmol/L (10-20); BUN (Urea Nitrogen) 8 mg/dL (8.9-20.6); Calc. Creatinine Clearance 242 mL/min (70-130); Carbon Dioxide 28 mmol/L (22-29); Chloride 107 mmol/L (98-107); Estimated GFR-MDRD Greater than 90; Glucose 188 mg/dL (70-105); Sodium 139 mmol/L (136-145)
[2018-04-01] MEDS: metFORMIN 500 MG TAB PO SCH ×2 (10:12→17:23)
[2018-04-01] MEDS: Insulin Glargine 50 UNITS in Pre-Filled Syringe 1 EACH SC SCH (10:12)
[2018-04-01] MEDS: Fenofibrate 48 MG TAB PO SCH (10:13)
[2018-04-01] MEDS: Lisinopril 5 MG TAB PO SCH (10:13)
[2018-04-01] MEDS: Enoxaparin Sodium 40 MG/0.4 ML SYRINGE SC SCH (10:13)
[2018-04-01] MEDS: HumaLOG 300 UNITS/3 ML VIAL SC SCH ×3 (10:14→17:22)
[2018-04-01] MEDS: Nicotine 21 MG PATCH TD SCH (10:15)
[2018-04-02] MEDS: Piperacillin/Tazobactam 3.375 GM in Sodium Chloride 0.9% 100 ML IVPB SCH ×2 (05:52→11:41)
--- NOTE | 2018-04-02 06:53 | PDOC.FM ---
- Subjective Subjective: Feeling well, no overnight events. Wound vac in place. Denies pain, fever, chills. Up walking around yesterday. - Objective MAR Reviewed: Yes Vital Signs & Weight: Vital Signs (12 hours) Temp Pulse Resp BP Pulse Ox 04/01/18 20:00 97.3 F L 63 18 152/81 H 94 L Weight Admit Weight 130.635 kg Weight 130.635 kg I&O: 03/31/18 04/01/18 04/02/18 06:59 06:59 06:59 Intake Total 3329 3540 3230 Output Total 2780 400 Balance 549 3540 2830 Result Diagrams: 04/01/18 07:21 04/01/18 07:21 Phys Exam - Physical Examination Constitutional: NAD HEENT: moist MMs Neck: supple Respiratory: no wheezing, clear to auscultation bilateral Cardiovascular: RRR, no significant murmur Gastrointestinal: soft, non-tender Musculoskeletal: no edema Neurological: moves all 4 limbs Psychiatric: normal affect, A&O x 3 Skin: normal turgor Dx/Plan (1) Sepsis Code(s): A41.9 - SEPSIS, UNSPECIFIED ORGANISM Status: Acute (2) Abscess Code(s): L02.91 - CUTANEOUS ABSCESS, UNSPECIFIED Status: Acute (3) Cellulitis Code(s): L03.90 - CELLULITIS, UNSPECIFIED Status: Acute (4) HLD (hyperlipidemia) Code(s): E78.5 - HYPERLIPIDEMIA, UNSPECIFIED Status: Chronic (5) HTN (hypertension) Code(s): I10 - ESSENTIAL (PRIMARY) HYPERTENSION Status: Chronic (6) T2DM (type 2 diabetes mellitus) Status: Chronic - Plan Plan: 42yo male with pmh of uncontrolled DMII presenting with sepsis 2/2 groin abscess Right Groin wound - CT with no evidence of nec fas or osteomyelitis - Surgery consulted, OR for I&D 03/28, 14cm in length, 4.5cm depth. Wound Vac in place - Wound cultures group B strep - Blood cultures NGTD - Continue Zosyn - Possibly d/c today on PO antibiotics if wound improved DM - A1c 10.9% - Continue home Metformin. 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 Pt will likely have to discharge on Metformin and glipizide. Will need close follow with PCP. Spoke with him about the importance of diet and possibility of adding an injectable agent to avoid Insulin. - accuchecks ACHS - SSI and hypoglycemic protocol - Will need better control of blood glucose at d/c for wound healing. - CM consulted due to financial concerns Hypoxia overnight - likely CHERYL - Recommend outpt testing Multisubstance Abuse - UDS positive for meth and cannabis HTN - Continue home lisinopril HLD - Continue home fenofibrate Sepsis, resolved - 2/2 right groin abscess Code Status: FULL DVT ppx: Lovenox PCP: Dr. Renetta Robles in [place] Dispo: Awaiting surgery recs regarding antibiotics and wound vac Addendum - Attending - Attending Attestation Date/Time: 04/02/18 1040 I personally evaluated the patient and discussed the management with Dr. Cardoso. I agree with the History, Examination, Assessment and Plan documented above with any addition or exceptions noted below. Patient doing well and denies complaints. Awaiting surgery approval to switch to PO therapy and hopeful discharge. If he will require Woundvac, it will prolong his stay due to financial status.
[2018-04-02] MEDS ORDERED: HumaLOG 300 UNITS/3 ML VIAL SC SCH (06:54)
[2018-04-02] MEDS: metFORMIN 500 MG TAB PO SCH (08:49)
[2018-04-02] MEDS: HumaLOG 300 UNITS/3 ML VIAL SC SCH ×2 (08:49→11:40)
[2018-04-02] MEDS: Fenofibrate 48 MG TAB PO SCH (08:50)
[2018-04-02] MEDS: Enoxaparin Sodium 40 MG/0.4 ML SYRINGE SC SCH (08:50)
[2018-04-02] MEDS: Insulin Glargine 50 UNITS in Pre-Filled Syringe 1 EACH SC SCH (08:50)
[2018-04-02] MEDS: Lisinopril 5 MG TAB PO SCH (08:51)
[2018-04-02] MEDS: Nicotine 21 MG PATCH TD SCH (08:58)
[2018-04-02] MEDS: HumaLOG 300 UNITS/3 ML VIAL SC PRN (11:40)
[2018-04-02 11:42] VITALS: BP 132/78; TEMP 98.2
[2018-04-02] MEDS: Acetaminophen 325 MG TAB PO PRN (11:42)
--- NOTE | 2018-04-03 08:27 | DIS ---
DATE OF ADMISSION: 03/28/2018 DATE OF DISCHARGE: 04/02/2018 RESIDENT: Bruna Cardoso MD, PGY-1. ADMITTING ATTENDING: Ten Mckeon MD DISCHARGE ATTENDING: Rj Adams MD CONSULT: Dr. Jarrell. PROCEDURE: I and D of right groin abscess. PRIMARY DIAGNOSES: 1. Sepsis secondary to right groin abscess, resolved. 2. Right groin abscess. SECONDARY DIAGNOSES: 1. Type 2 diabetes, uncontrolled. 2. Hypoxia at night. 3. Multisubstance abuse. 4. Hypertension. 5. Hyperlipidemia. DISCHARGE MEDICATIONS: 1. Tricor 48 mg daily. 2. Humalog 8 units t.i.d. with meals. 3. Lisinopril 5 mg daily. 4. Metformin 1000 mg b.i.d. 5. Glargine 45 units q.a.m. 6. Keflex 500 mg b.i.d. for 5 days. DISCONTINUED MEDICATIONS: None. HISTORY OF PRESENT ILLNESS/HOSPITAL COURSE: Mr. Dent is a 42-year-old male with past medical history of uncontrolled type 2 diabetes, hypertension, hyperlipidemia, transferred from [place] ED for right groin abscess. The patient reported a 3-day history of worsening redness, swelling and pain. 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 His PCP is located in [place]. He was given 1 L of normal saline. Started on vancomycin and Zosyn in the ED. His white blood cell count was 22. He was tachycardic on initial presentation, but afebrile. Vital signs were stable in the ED. Abscess aspiration was performed and cultured. Surgery was consulted, incision and drainage was performed on the evening of March 28. Abscess was 14 cm in length and 4.5 cm in depth. Wound VAC was placed and wound cultures obtained. Blood cultures showed no growth. Wound cultures grew group B strep. Vancomycin was discontinued and patient was continued on Zosyn over the weekend. Wound showed great improvement on day of discharge. Zosyn was discontinued and patient was discharged with 5 days of Keflex. The patient was noted to have elevated blood sugars. At presentation, blood glucose was 272. Hemoglobin A1c was obtained at 10.9%. He reports taking metformin 1000 mg b.i.d. 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 The patient is more compliant with his diet when he was at home, but it was difficult for him to do over the road, which he has been doing [id number] jobs for the last 3 months. We spoke with him about the importance of diet and the possibility of discharging him with glyburide and starting an injectable agent to avoid insulin in the future. He did require increasing doses of long-acting insulin and the addition of short-acting insulin with meals during this hospitalization. Lantus at discharge was at 50 units and Humalog 8 units t.i.d. with meals. His blood sugars were still not optimally controlled with this regimen. Keep in mind blood sugars are probably elevated in the setting of infection and may turndown with resolution growing infection. It is important to follow up his blood glucose for wound healing, as well as to avoid long-term consequences of uncontrolled diabetes such as his eyesight that would impact his job. Of note, on admission, his UDS was positive for amphetamines, methamphetamines, and cannabis. The patient endorsed using some stimulants to stay awake while driving. His chronic medical problems of hypertension and hyperlipidemia were treated with home medications and stable throughout course of hospital stay. He was noted to be hypoxic as low as 92, as well as 90 and 92 overnight. There is probably some component of obstructive sleep apnea that could be treated as an outpatient. The patient does report finances as a concern for his health care. This could be followed up with PCP. DISPOSITION: Stable. DISCHARGE INSTRUCTIONS: 1. Location: Home. 2. Diet: Consisting carb, heart healthy. 3. Activity: As tolerated. 4. Followup: Follow up with PCP, Dr. Renetta Robles, in [place]. Job ID: [id number]
== END 2018-04-02 15:49 | disposition home or self-care (01) | DRG 854 ==
LOC: ERS 22:46 → ERHOLD 03-28 03:48 → T4-B 03-28 06:15
PROVIDERS: ADMIT Family Medicine; ATTEND Family Medicine
PROC: 0J9C0ZZ Drainage of Pelvic Region Subcutaneous Tissue and Fascia, Open Approach (ICD-10-PCS; principal; 2018-03-28)
PROC: 0JBL0ZZ Excision of Right Upper Leg Subcutaneous Tissue and Fascia, Open Approach (ICD-10-PCS; 2018-03-28)
DX: A41.9 Sepsis, unspecified organism (principal); L02.214 Cutaneous abscess of groin; L03.314 Cellulitis of groin; E11.9 Type 2 diabetes mellitus without complications; E78.5 Hyperlipidemia, unspecified; I10 Essential (primary) hypertension; F17.210 Nicotine dependence, cigarettes, uncomplicated; F15.10 Other stimulant abuse, uncomplicated; F12.10 Cannabis abuse, uncomplicated; R09.02 Hypoxemia
CPT/HCPCS: 10061; 36415; 36416; 80048; 80053; 80202; 80306; 83036; 83605; 85025; 86140; 87040; 87070; 87077; 87205; 96361; 96365; 96366; J0670; J1650; J1815; J1825; J2001; J2405; J2543; J2704; J3370; J7050; J7620; Q9966